=== PATIENT | male | born 1970 | race Caucasian/White ===

== ENCOUNTER 2016-06-05 20:40 | Inpatient (IN) | payer MEDICAID ==
[~2016-06-05] VITALS: Ht 167.6 cm; Wt 93.4 kg
[2016-06-05 22:26] LABS: PLATELET COUNT 242 x10^3mcL (130-400); RED CELL DISTRIBUTION WIDTH 12.9 % (11.5-14.5)
[2016-06-05 22:40] LABS: microscopic required? YES; urine erythrocyte 3+ (NEGATIVE)
[2016-06-05 22:49] LABS: BILIRUBIN TOTAL 0.6 mg/dL (0.20-1.00); CALCIUM 10.3 mg/dL (8.5-10.1); CARBON DIOXIDE 26.5 mmol/L (21-32); CREATININE SERUM 2.1 mg/dL (0.7-1.3); POTASSIUM SERUM 4.1 mmol/L (3.5-5.1)
[2016-06-05 22:50] LABS: ALBUMIN 2.9 g/dL (3.4-5.0); TOTAL PROTEIN, SERUM 8.5 g/dL (6.4-8.2)
[2016-06-05 22:57] LABS: BAND NEUTROPHIL 2 % (0-10); MONOCYTE 3 % (0-7); PLATELET MORPHOLOGY PLATELETS NORMAL; SEGMENTED NEUTROPHILS 90 % (37-75); rbc morphology (normal/abnorm) ABNORMAL (NORMAL)
[2016-06-06 02:39] VITALS: BP 124/83
[2016-06-06 04:16] LABS: AMPHETAMINE QUAL UR NONE DETECTED (NEG <=1000)
[2016-06-06 04:19] LABS: MAGNESIUM 2.2 mg/dL (1.8-2.4); PHOSPHOROUS 3.5 mg/dL (2.5-4.9)
[2016-06-06 04:21] LABS: CHOLESTEROL/HDL RATIO 4.2
[2016-06-06 04:23] LABS: T3 TOTAL 0.53 ng/mL
[2016-06-06 04:26] LABS: FREE T4 1.45 ng/dL (0.76-1.46); FREE THYROXINE INDEX 2.5 ug/dL (1.4-4.5)
[2016-06-06 05:40] VITALS: BP 108/61
[2016-06-06 06:25] LABS: PLATELET COUNT 211 x10^3mcL (130-400); RED CELL DISTRIBUTION WIDTH 13.1 % (11.5-14.5)
[2016-06-06 06:36] LABS: CALCIUM 9.1 mg/dL (8.5-10.1); CARBON DIOXIDE 22.7 mmol/L (21-32); CREATININE SERUM 1.9 mg/dL (0.7-1.3); POTASSIUM SERUM 3.9 mmol/L (3.5-5.1)
[2016-06-06 08:04] VITALS: BP 118/65
[2016-06-06 08:36] LABS: BAND NEUTROPHIL 15 % (0-10); BASOPHIL 0 % (0-2); MONOCYTE 7 % (0-7); SEGMENTED NEUTROPHILS 70 % (37-75)
[2016-06-06 12:53] VITALS: BP 120/72
[2016-06-06 17:29] VITALS: BP 123/76
[2016-06-06 20:57] VITALS: BP 115/68
[2016-06-07 06:20] VITALS: BP 103/79
[2016-06-07 06:44] LABS: PLATELET COUNT 203 x10^3mcL (130-400); RED CELL DISTRIBUTION WIDTH 13.6 % (11.5-14.5)
[2016-06-07 07:00] LABS: BASOPHIL % 0 % (0-2)
[2016-06-07 07:08] LABS: CALCIUM 9.1 mg/dL (8.5-10.1); CARBON DIOXIDE 24.8 mmol/L (21-32); CREATININE SERUM 1.6 mg/dL (0.7-1.3); MAGNESIUM 1.9 mg/dL (1.8-2.4); PHOSPHOROUS 3.1 mg/dL (2.5-4.9); POTASSIUM SERUM 4.2 mmol/L (3.5-5.1)
[2016-06-07 09:26] VITALS: BP 115/79
[2016-06-07 10:13] VITALS: Ht 167.6 cm; Wt 93.4 kg
[2016-06-07 13:55] VITALS: BP 138/79
[2016-06-07 18:46] VITALS: BP 115/76
[2016-06-07 20:48] VITALS: BP 119/68
[2016-06-08 05:28] VITALS: BP 122/71
[2016-06-08 06:17] LABS: CALCIUM 8.8 mg/dL (8.5-10.1); CARBON DIOXIDE 24.4 mmol/L (21-32); CHLORIDE SERUM 103 mmol/L (98-107); CREATININE SERUM 1.3 mg/dL (0.7-1.3); GFR1 > 60 mL/min; GLUCOSE SERUM 99 mg/dL (74-106); POTASSIUM SERUM 3.9 mmol/L (3.5-5.1); SODIUM SERUM 134 mmol/L (136-145)
[2016-06-08 06:18] LABS: ALBUMIN 1.9 g/dL (3.4-5.0)
[2016-06-08 06:53] LABS: BASOPHIL % 0 % (0-2); PLATELET COUNT 225 x10^3mcL (130-400); RED CELL DISTRIBUTION WIDTH 13.6 % (11.5-14.5)
[2016-06-08 08:52] VITALS: BP 96/60
[2016-06-08] MEDS ORDERED: TYL325 PO (16:05)
[2016-06-08] MEDS ORDERED: LEVAQUIN750 MG PO (16:05)
[2016-06-08] MEDS ORDERED: LAC PO (16:05)
[2016-06-08 16:40] VITALS: BP 96/60
== END 2016-06-08 17:08 | disposition home or self-care (01) | DRG 720 ==
LOC: ED 20:40 → DU 06-06 01:42 → MU 06-06 01:42 → DU 06-06 02:23 → MU 06-07 15:51
PROVIDERS: Emergency Medicine; Family Medicine; ADMIT Family Medicine
DX: A41.9 Sepsis, unspecified organism (principal); N17.0 Acute kidney failure with tubular necrosis; E43 Unspecified severe protein-calorie malnutrition; E87.1 Hypo-osmolality and hyponatremia; N10 Acute pyelonephritis; B96.20 Unspecified Escherichia coli [E. coli] as the cause of diseases classified elsewhere; R31.9 Hematuria, unspecified; R65.20 Severe sepsis without septic shock; N50.3 Cyst of epididymis; D64.9 Anemia, unspecified; F17.210 Nicotine dependence, cigarettes, uncomplicated; E66.9 Obesity, unspecified; Z68.33 Body mass index [BMI] 33.0-33.9, adult
CPT/HCPCS: 76770; 80307; 83880; 84439; 87491; 87591; J1956; J7030; Q0092